=== PATIENT | female | born 1965 | race Caucasian/White ===

== ENCOUNTER 2017-02-25 18:41 | Emergency (ER) | payer BC | END 2017-02-25 20:00 | disposition home or self-care (01) | LOC: D.ER 18:41 | DX: J06.9 Acute upper respiratory infection, unspecified (principal); J01.90 Acute sinusitis, unspecified; K21.9 Gastro-esophageal reflux disease without esophagitis; F17.200 Nicotine dependence, unspecified, uncomplicated ==

== ENCOUNTER 2017-05-30 14:57 | Emergency (ER) | payer BC | END 2017-05-30 17:14 | disposition home or self-care (01) | LOC: D.ER 14:57 | DX: R07.81 Pleurodynia (principal); F17.200 Nicotine dependence, unspecified, uncomplicated; K21.9 Gastro-esophageal reflux disease without esophagitis ==

== ENCOUNTER 2018-02-25 13:50 | Emergency (ER) | payer MEDICAID | END 2018-02-25 15:52 | disposition home or self-care (01) | LOC: D.ER 13:50 | DX: S46.912A Strain of unspecified muscle, fascia and tendon at shoulder and upper arm level, left arm, initial encounter (principal); X58.XXXA Exposure to other specified factors, initial encounter; Y93.89 Activity, other specified; Y92.89 Other specified places as the place of occurrence of the external cause; I10 Essential (primary) hypertension; K21.9 Gastro-esophageal reflux disease without esophagitis; F17.200 Nicotine dependence, unspecified, uncomplicated ==

== ENCOUNTER → 2018-03-29 08:07 | Outpatient (CLI) | payer MEDICAID ==
[2018-02-25 14:05] VITALS: BMI 21.9
[~2018-03-29 08:07] MED LIST: CELEXA40 MG PO; KLONOPIN1 MG PO; LISINOPRIL10 MG PO; OXYBUTYNIN CHLOR5 MG PO; PROTONIX40 MG PO; ROBAXIN500 MG PO
== END | disposition home or self-care (01) ==
LOC: D.MRI 08:07
DX: M25.512 Pain in left shoulder (principal)

== ENCOUNTER → 2018-05-18 08:24 | Outpatient (CLI) | payer MEDICAID ==
[2018-02-25 14:05] VITALS: BMI 21.9
== END | disposition home or self-care (01) ==
LOC: D.NM 08:24
PROVIDERS: ATTEND Internal Medicine Gastroenterology
DX: R12 Heartburn (principal); R11.2 Nausea with vomiting, unspecified

== ENCOUNTER 2018-07-17 05:55 | Day surgery (SDC) | payer MEDICAID ==
[2018-07-16 09:53] LABS: BASOPHILS 0.5 % (0-2); EOSINOPHILS 2.6 % (0-7); HEMATOCRIT 39.9 % (36.0-48.0); HEMOGLOBIN 13.9 g/dL (12-16); IMMATURE GRANULOCYTES 0.2 % (0-5); LYMPHOCYTES 23.9 % (15-50); MCH 32.3 pg (26.0-34.0); MCHC 34.8 g/dL (31.0-37.0); MCV 92.8 fL (80.0-100.0); MEAN PLATELET VOLUME 9.7 fL (7.4-10.4); MONOCYTES 12.3 % (2-11); NEUTROPHILS 60.5 % (40-80); PLATELET COUNT 191 10x3/uL (130-400); RDW 12.4 % (11.5-14.5); WBC 6.1 10x3/uL (4.8-10.8)
[2018-07-16 10:05] LABS: CALC OSMOLALITY 283 mosm/kg (275-300); CALCIUM 9.1 mg/dL (8.5-10.1); CARBON DIOXIDE 31.1 mmol/L (21.0-32.0); CHLORIDE - SERUM 107 mmol/L (98-107); CREATININE - SERUM 0.8 mg/dL (0.6-1.3); POTASSIUM - SERUM 3.9 mmol/L (3.5-5.1); SODIUM 143 mmol/L (136-145); UREA NITROGEN 15 mg/dL (7-18); eGFR NON AFRICAN AMERICAN 80 mL/min (90-120)
[2018-07-16 10:07] LABS: GLUCOSE 56 mg/dL (74-106)
[~2018-07-17] VITALS: Ht 172.7 cm; Wt 63.0 kg
[~2018-07-17 05:55] MED LIST changes: +COZAAR50 MG PO; +PEPCID AC20 MG PO
--- NOTE | 2018-07-17 06:30 | NUR ---
0630 PT STATES NO CHANGES IN HEALTH HISTORY ASSESSMENT SINCE INTERVIEWED YESTERDAY 07/16/18. Hubert LEBLANC R.N.
[2018-07-17 06:45] VITALS: BP 133/85; Ht 172.7 cm; Wt 63.0 kg
[2018-07-17] MEDS ORDERED: HYDROCODON-ACE1 EA10 PO (09:06)
[2018-07-17 13:05] LABS: HCG URINE NEGATIVE (NEGATIVE)
--- NOTE | 2018-07-17 16:25 | NUR ---
1231 1 NORCO 10/325MG FOR COMPLAINTS OF PAIN @ 08/27. Hubert Herrera.NDheeraj 1305 IV DC'ED WITH CATH INTACT. DRESSED. GVIEN DISCHARGE INFORMATION INCLUDING: RX: NORCO 10/325MG, MED REC, RTD APPT., [facility] OPS D/C INSTRUCTIONS & POST CHOLECYSTECTOMY INSTRUCTIONS. PT VOICED UNDERSTANDING. TO PRIVATE CAR PER WHEELCHAIR. HOME WITH FRIEND, LIZ. Hubert HILL R.N.
--- NOTE | 2018-07-18 14:40 | OP ---
PATIENT NAME: GISSEL POND MEDICAL RECORD: [id number] :69 LOCATION:D.OPS ADMISSION DATE: SURGEON: ZHANG PARRA MD DATE OF OPERATION: 07/17/2018 PREOPERATIVE DIAGNOSES: 1. Biliary dyskinesia. 2. Gastroesophageal reflux disease. 3. Hypertension. 4. Hypercholesterolemia. 5. Tobacco dependence syndrome. POSTOPERATIVE DIAGNOSES: 1. Biliary dyskinesia. 2. Gastroesophageal reflux disease. 3. Hypertension. 4. Hypercholesterolemia. 5. Tobacco dependence syndrome. PROCEDURE: Laparoscopic cholecystectomy. SURGEON: Zhang Parra MD REPORT OF PROCEDURE: The patient's abdomen was prepped and draped in sterile fashion. A cutdown was made on the superior aspect of the umbilicus. We encountered a small fat-containing umbilical hernia. This fatty tissue was pushed back into the abdominal cavity. We then placed 0 Vicryls on the fascia bilaterally and extended the hernia opening superiorly and I bluntly entered the abdominal cavity. A 12-mm Angelo port was then inserted, and the abdomen was insufflated. Under direct visualization, a 5-mm trocar was placed in the epigastrium and 2 more 5-mm trocars were placed in the right subcostal region. The gallbladder was grasped and elevated. There were some adhesions present of the omentum and the transverse colon to the gallbladder, and these were teased down carefully with blunt dissection. The cystic artery and cystic duct were dissected free and these were clipped proximally and distally and ligated in standard fashion. The gallbladder was then taken off the liver bed using electrocautery and placed into an Endo Catch bag. Any bleeding from the liver bed was treated with electrocautery. At this point, the ports and insufflation were then removed and the gallbladder was taken out through the umbilicus. The umbilical fascia was closed with interrupted 0 Vicryls times 3. The wounds were then irrigated out with normal saline and infused with 10 mL of 0.25% Marcaine with epinephrine. The skin incisions were all closed with subcutaneous 5-0 Monocryl and dressed appropriately. COMPLICATIONS: None. CONDITION: Stable. ANESTHESIA: General endotracheal and local. BLOOD LOSS: Minimal. 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 [address] [place] [address]
== END 2018-07-17 13:05 | disposition home or self-care (01) ==
LOC: D.OPS 05:55 → D.PAN 08:00 → D.OPS 08:00
PROVIDERS: ATTEND Surgery
DX: K82.8 Other specified diseases of gallbladder (principal); K21.9 Gastro-esophageal reflux disease without esophagitis; I10 Essential (primary) hypertension; E78.00 Pure hypercholesterolemia, unspecified; F17.200 Nicotine dependence, unspecified, uncomplicated; Z01.812 Encounter for preprocedural laboratory examination

== ENCOUNTER → 2019-08-22 09:39 | Outpatient (CLI) | payer MEDICAID ==
[2018-07-17 06:45] VITALS: BMI 21.1
[~2019-08-22 09:39] MED LIST changes: +HYDROCODON-ACE1 EA10 PO
== END | disposition home or self-care (01) ==
LOC: D.NM 09:30
PROVIDERS: ATTEND Internal Medicine Gastroenterology
DX: R93.3 Abnormal findings on diagnostic imaging of other parts of digestive tract (principal)